=== PATIENT | female | born 1975 | race Hispanic/Latino ===

== ENCOUNTER 2025-04-28 00:09 | Emergency (ER) | payer OTHER ==
[~2025-04-28] VITALS: Ht 152.4 cm; Wt 67.0 kg
[2025-04-28] MEDS ORDERED: BACTRIM DS TAB1 EACH PO (00:18)
[2025-04-28] MEDS ORDERED: HIBICLENS118 ML TOP (00:18)
[2025-04-28] MEDS ORDERED: TRIMETHOPRIM/SULFAMETHOXAZOLE 1 EA HOME.PACK PO ONE (00:30)
[2025-04-28 00:46] VITALS: BP 150/100
== END 2025-04-28 00:49 | disposition home or self-care (01) ==
LOC: ED 00:09
DX: L08.9 Local infection of the skin and subcutaneous tissue, unspecified (principal)
CPT/HCPCS: 99282; A9270

== ENCOUNTER 2025-05-27 23:19 | Emergency (ER) | payer OTHER ==
[~2025-05-27] VITALS: Ht 152.4 cm; Wt 67.0 kg
[~2025-05-27 23:19] MED LIST: BACTRIM DS TAB1 EACH PO; HIBICLENS118 ML TOP
--- OUTSIDE RECORDS SUMMARY | 2025-05-27 23:26 | XMS ---
PreManage Notification: HUGO OCHOA Security Traveling [employer] Events No recent Security Events currently on file CRITERIA MET - [facility] - 2 Visits in 30 Days CARE PROVIDERS -, [facility] Dentist: [facility] PHONE: [phone] -Miki- Dentist: [facility] PHONE: [phone] SRIDHAR WALL Physician Plant Facilities Technician Current PHONE: [phone] Thor has no Care Guidelines for this patient. ENayely VISIT COUNT (12 MO.) 2 [facility] TOTAL 2 NOTE: Visits indicate total known visits. ED/UCC VISIT TRACKING (12 MO.) 05/27/2025 23:20 [facility] [place] TYPE: Emergency COMPLAINT: - SKIN ISSUE 04/28/2025 00:10 [facility] [place] TYPE: Emergency COMPLAINT: - SKIN ISSUE DIAGNOSES: - Disorder of the skin and subcutaneous tissue, unspecified - Local infection of the skin and subcutaneous tissue, unspecified INPATIENT VISIT TRACKING (12 MO.) No inpatient visits to display in this time frame [email or web address]
[2025-05-28 00:26] LABS: BLOOD/HGB, URINE MODERATE (Negative); KETONE, URINE NEGATIVE (Negative); LEUK ESTERASE, URINE MODERATE (negative); NITRITE, URINE NEGATIVE (negative)
[2025-05-28 00:33] LABS: EPITHELIAL CELLS, URINE SQUAMOUS 1+ /lpf (0-1+)
[2025-05-28 00:34] LABS: BACTERIA, URINE 1+ /hpf (negative); CASTS, URINE NONE SEEN \\lpf; CRYSTALS, URINE NONE SEEN (0-1+); REFLEX CULTURE, URINE Yes (No)
[2025-05-28] MEDS ORDERED: KETOCONAZOLE120 ML TOP (01:01)
[2025-05-28] MEDS ORDERED: CIPRO500 MG PO (01:01)
[2025-05-28] MEDS ORDERED: MUPIROCIN22 GM TOP (01:01)
[2025-05-28] MEDS ORDERED: CIPROFLOXACIN 500 MG TAB PO ONE (01:15)
[2025-05-28 01:23] VITALS: BP 150/86
== END 2025-05-28 01:24 | disposition home or self-care (01) ==
LOC: ED 23:19
PROVIDERS: Family Medicine
DX: L73.9 Follicular disorder, unspecified (principal); L63.9 Alopecia areata, unspecified; Z79.899 Other long term (current) drug therapy
CPT/HCPCS: 81001; 87040; 87088; 99283